=== PATIENT | female | born 1955 | race Caucasian/White ===

== ENCOUNTER 2016-06-29 11:42 | Inpatient (IN) | payer OTHER ==
[2016-06-29] VITALS (7 sets, daily range): BP systolic 102–120; BP diastolic 65–73
[~2016-06-29] VITALS: Ht 170.2 cm; Wt 77.6 kg
[~2016-06-29 11:42] MED LIST: IBUP200T48 PO; SERT25TA3 PO
[2016-06-29] MEDS ORDERED: FAMOTIDINE 20 MG/2 ML IVPush ONE (12:30)
[2016-06-29] MEDS ORDERED: SODIUM CHLORIDE FLUSH 10ML SYR IVF ONE (12:30)
[2016-06-29] MEDS ORDERED: SODIUM CHLORIDE 0.9% 1,000ML IVBOLUS ONE (12:30)
[2016-06-29] MEDS ORDERED: IBUP800T PO (12:36)
[2016-06-29 12:43] LABS: ASPARTATE AMINO TRANSFERASE 7 U/L (15-37); BLOOD UREA NITROGEN 32 mg/dL (7-18)
[2016-06-29] MEDS ORDERED: FAMOTIDINE 20 MG/2 ML ONE (12:53)
[2016-06-29] MEDS ORDERED: PANTOPRAZOLE 80 MG in SODIUM CHLORIDE 0.9% 50 ML IVPB ONE (13:17)
[2016-06-29] MEDS ORDERED: PANTOPRAZOLE 80 MG in SODIUM CHLORIDE 0.9% 100 ML IV SCH (13:17)
[2016-06-29] MEDS ORDERED: PANTOPRAZOLE 40 MG IV IVPush ONE (13:30)
[2016-06-29] MEDS ORDERED: ACETAMINOPHEN 325 MG TABLET PO PRN (15:30)
[2016-06-29] MEDS ORDERED: PANTOPRAZOLE 80 MG in SODIUM CHLORIDE 0.9% 50 ML IV ONE (16:30)
[2016-06-29] MEDS: SODIUM CHLORIDE 0.9% 1,000 ML IV SCH (17:30)
[2016-06-29] MEDS ORDERED: OMNIPAQUE 350 MG/ML, 100ML BOTTLE ONE (22:52)
[2016-06-30] VITALS (7 sets, daily range): BP systolic 101–122; BP diastolic 64–78
[2016-06-30] MEDS: PANTOPRAZOLE 80 MG in SODIUM CHLORIDE 0.9% 100 ML IV SCH ×2 (03:35→14:23)
[2016-06-30 04:41] LABS: BLOOD UREA NITROGEN 23 mg/dL (7-18)
[2016-06-30 04:45] LABS: ASPARTATE AMINO TRANSFERASE 11 U/L (15-37)
[2016-06-30] MEDS: SODIUM CHLORIDE 0.9% 1,000 ML IV SCH ×2 (09:38→20:08)
[2016-06-30] MEDS ORDERED: FENTANYL PF 100 MCG/2ML ONE (11:26)
[2016-06-30] MEDS ORDERED: MIDAZOLAM 1 MG/ML, 5ML ONE (11:26)
[2016-06-30] MEDS ORDERED: EPINEPHRINE SYRINGE 0.1 MG/ML, 10ML ONE (12:29)
[2016-06-30] MEDS: SUCRALFATE 1 GM TABLET PO SCH ×2 (17:20→20:07)
[2016-07-01] MEDS: PANTOPRAZOLE 80 MG in SODIUM CHLORIDE 0.9% 100 ML IV SCH ×3 (00:11→21:33)
[2016-07-01 01:18] VITALS: BP 107/54
[2016-07-01 05:48] LABS: BLOOD UREA NITROGEN 15 mg/dL (7-18)
[2016-07-01] MEDS: SODIUM CHLORIDE 0.9% 1,000 ML IV SCH ×2 (06:16→15:24)
[2016-07-01 06:37] VITALS: BP 124/69
[2016-07-01] MEDS: SUCRALFATE 1 GM TABLET PO SCH ×4 (07:38→21:11)
[2016-07-01] MEDS ORDERED: POTASSIUM CHLORIDE 20 MEQ TAB.ER.PRT PO ONE (13:30)
[2016-07-01 13:50] VITALS: BP 107/66
[2016-07-01 19:22] VITALS: BP 124/72
[2016-07-02 03:14] VITALS: BP 115/70
[2016-07-02] MEDS: SODIUM CHLORIDE 0.9% 1,000 ML IV SCH ×2 (04:37→14:00)
[2016-07-02 06:07] LABS: BLOOD UREA NITROGEN 7 mg/dL (7-18)
[2016-07-02 06:50] VITALS: BP 118/70
[2016-07-02] MEDS: PANTOPRAZOLE 80 MG in SODIUM CHLORIDE 0.9% 100 ML IV SCH (07:46)
[2016-07-02] MEDS: SUCRALFATE 1 GM TABLET PO SCH ×4 (07:46→20:36)
[2016-07-02] MEDS: SERTRALINE 50MG TABLET PO SCH (14:02)
[2016-07-02 14:40] VITALS: BP 115/76
[2016-07-02 18:46] VITALS: BP 135/83
[2016-07-02] MEDS: OMEPRAZOLE 20 MG CAPSULE.DR PO SCH (20:36)
[2016-07-03 01:26] VITALS: BP 115/60
[2016-07-03 05:02] LABS: BLOOD UREA NITROGEN 4 mg/dL (7-18)
[2016-07-03 06:55] VITALS: BP 111/57
[2016-07-03] MEDS: SUCRALFATE 1 GM TABLET PO SCH ×2 (08:10→11:44)
[2016-07-03] MEDS: OMEPRAZOLE 20 MG CAPSULE.DR PO SCH (08:10)
[2016-07-03] MEDS: SERTRALINE 50MG TABLET PO SCH (08:10)
[2016-07-03] MEDS ORDERED: SUCR1TAB26 PO ×2 (10:15→10:34)
[2016-07-03] MEDS ORDERED: OMEP-110 PO (10:15)
[2016-07-03] MEDS ORDERED: POTASSIUM CHLORIDE 20 MEQ TAB.ER.PRT PO ONE ×2 (11:00→12:30)
[2016-07-03 13:20] VITALS: BP 126/68
[2016-07-03 14:09] LABS: BLOOD UREA NITROGEN 5 mg/dL (7-18)
[2016-07-03] MEDS ORDERED: SODIUM CHLORIDE 0.9% 1,000 ML IV SCH (14:47)
== END 2016-07-03 15:35 | disposition home or self-care (01) | DRG 377 ==
LOC: ED 12:38 → EDIP 13:46 → 3NE 16:15 → 4WST 06-30 14:55
PROVIDERS: ADMIT Internal Medicine; ATTEND Internal Medicine
PROC: 3E0G8GC Introduction of Other Therapeutic Substance into Upper GI, Via Natural or Artificial Opening Endoscopic (ICD-10-PCS; 2016-06-30)
PROC: 0D598ZZ Destruction of Duodenum, Via Natural or Artificial Opening Endoscopic (ICD-10-PCS; 2016-06-30)
PROC: 30233N1 Transfusion of Nonautologous Red Blood Cells into Peripheral Vein, Percutaneous Approach (ICD-10-PCS; principal; 2016-06-30 12:15)
DX: K26.4 Chronic or unspecified duodenal ulcer with hemorrhage (principal); E43 Unspecified severe protein-calorie malnutrition; D62 Acute posthemorrhagic anemia; F32.9 Major depressive disorder, single episode, unspecified; E87.6 Hypokalemia; K20.0 Eosinophilic esophagitis; K44.9 Diaphragmatic hernia without obstruction or gangrene; M17.0 Bilateral primary osteoarthritis of knee; Z68.26 Body mass index [BMI] 26.0-26.9, adult; Z88.0 Allergy status to penicillin; Z79.899 Other long term (current) drug therapy; Z87.11 Personal history of peptic ulcer disease; Z87.891 Personal history of nicotine dependence; Z72.89 Other problems related to lifestyle; Z90.89 Acquired absence of other organs
CPT/HCPCS: 36415; 74177; 80048; 80053; 82040; 83690; 85014; 85018; 85025; 85610; 86850; 86900; 86923; 93005; 96361; 96365; 96375; 99152; 99153; J2250; J3010; Q9967; C9113; J7030; P9016; S0028